=== PATIENT | male | born 1965 | race Caucasian/White ===

== ENCOUNTER 2017-01-17 12:41 | Outpatient (CLI) | payer MEDICARE, MEDICAID ==
[~2017-01-17 12:41] MED LIST: CLOB10TA PO; LACO200T2 PO; LACO50TA2 PO; LEVE500T9 PO
== END 2017-01-17 23:59 | disposition home or self-care (01) ==
LOC: XRAY 12:41
PROVIDERS: ATTEND Internal Medicine
DX: R05 Cough (principal)
CPT/HCPCS: 71020

== ENCOUNTER 2017-02-07 14:16 | Emergency (ER) | payer MEDICARE, MEDICAID ==
[~2017-02-07] VITALS: Ht 180.3 cm; Wt 72.6 kg
--- NOTE | 2017-02-07 15:33 | NUR ---
at the bedside
--- NOTE | 2017-02-07 16:16 | NUR ---
Patient discharged to home in stable conditon. Written and verbal after care instructions given. Patient verbalizes understanding of instructions.
== END 2017-02-07 16:17 | disposition home or self-care (01) ==
LOC: ER 14:16
DX: M79.662 Pain in left lower leg (principal); I10 Essential (primary) hypertension
CPT/HCPCS: 73502; 73590; A4663

== ENCOUNTER 2018-09-21 17:56 | Emergency (ER) | payer MEDICARE, MEDICAID ==
[~2018-09-21] VITALS: Ht 180.3 cm; Wt 72.6 kg
--- NOTE | 2018-09-21 18:23 | NUR ---
Dr Pearson at the bedside for MSE.
--- NOTE | 2018-09-21 18:38 | NUR ---
Patient discharged to home in stable conditon. Written and verbal after care instructions given. Patient verbalizes understanding of instructions.
[2018-09-21 18:39] VITALS: BP 139/84
== END 2018-09-21 18:39 | disposition home or self-care (01) ==
LOC: ER 17:57
DX: Z00.00 Encounter for general adult medical examination without abnormal findings (principal); I10 Essential (primary) hypertension; Z79.899 Other long term (current) drug therapy
CPT/HCPCS: A4663

== ENCOUNTER 2018-12-01 13:21 | Emergency (ER) | payer MEDICARE, MEDICAID ==
[~2018-12-01] VITALS: Ht 177.8 cm; Wt 73.9 kg
[2018-12-01] MEDS ORDERED: LIDOCAINE HCL 2% 20 ML VIAL TP ONE (14:00)
[2018-12-01] MEDS ORDERED: NEOMY/BACITRA/POLYMYXIN B OINT UD PACKET TP ONE ×2 (14:00→14:06)
--- NOTE | 2018-12-01 14:08 | NUR ---
PT IS IN ROOM #2A. DR ROE EVALUATED YHE PT. PT WAS D/C'D TO HOME. D/C INSTRUCTIONS GIVEN TO THE PT. NO BLEEDING. DRESSING IS INTACT.
[2018-12-01 14:09] VITALS: BP 131/89
== END 2018-12-01 14:10 | disposition home or self-care (01) ==
LOC: ER 13:21
DX: S01.111A Laceration without foreign body of right eyelid and periocular area, initial encounter (principal); I10 Essential (primary) hypertension; Z79.899 Other long term (current) drug therapy; W01.198A Fall on same level from slipping, tripping and stumbling with subsequent striking against other object, initial encounter; Y93.89 Activity, other specified; Y92.89 Other specified places as the place of occurrence of the external cause; Y99.8 Other external cause status
CPT/HCPCS: A4663; J3490

== ENCOUNTER 2018-12-07 15:04 | Emergency (ER) | payer MEDICARE, MEDICAID ==
[~2018-12-07] VITALS: Ht 177.8 cm; Wt 73.9 kg
--- NOTE | 2018-12-07 15:22 | NUR ---
PT IS IN ROOM #2B. DR ROSA EVALUATED THE PT.
--- NOTE | 2018-12-07 15:44 | NUR ---
Suture removed on right eyebrow
--- NOTE | 2018-12-07 15:46 | NUR ---
Patient discharged to home in stable conditon. Written and verbal after care instructions given. Patient verbalizes understanding of instructions. walked out of ER with no distress noted
== END 2018-12-07 15:47 | disposition home or self-care (01) ==
LOC: ER 15:06
DX: S01.111D Laceration without foreign body of right eyelid and periocular area, subsequent encounter (principal); I10 Essential (primary) hypertension; Z79.899 Other long term (current) drug therapy; X58.XXXD Exposure to other specified factors, subsequent encounter
CPT/HCPCS: A4663

== ENCOUNTER 2019-08-31 17:56 | Emergency (ER) | payer MEDICARE, MEDICAID ==
[~2019-08-31] VITALS: Ht 172.7 cm; Wt 72.6 kg
--- NOTE | 2019-08-31 18:10 | NUR ---
Patient BIB [id number] for c/o laceration on head s/p seizure. Speech is clear, speaks in complete sentences. No acute neuro deficits. A/Ox3. Respiratory even and unlabored, no cough no sob. No cardiovascular distress noted, all pulses palpable. Denies any n/v/d. Seizure precautions implemented per protocol.
--- NOTE | 2019-08-31 18:22 | NUR ---
Pt's brother at the bedside giving the pt CBD oil. Per brother pt uses CBD oil for seizure that his Neurologist prescribed.
[2019-08-31] MEDS ORDERED: ZONI100C42 PO (18:26)
[2019-08-31 18:57] LABS: EOSINOPHILS # (AUTO) 0.1 K/uL (0.0-0.7); MONOCYTES # (AUTO) 0.5 K/uL (2.0-10.0); WHITE BLOOD COUNT (AUTO) 4.9 K/uL (3.6-10.2)
--- NOTE | 2019-08-31 19:00 | NUR ---
Report given to CARY Meier
--- NOTE | 2019-08-31 19:00 | NUR ---
Assumed care of pt from CARY Moran
[2019-08-31 19:01] LABS: BASOPHILS % (AUTO) 0.8 % (0.0-2.0); EOSINOPHILS % (AUTO) 1.9 % (0.0-7.0); HEMATOCRIT 42.5 % (36.7-47.1); HEMOGLOBIN 14.6 g/dL (12.5-16.3); LYMPHOCYTES # (AUTO) 1.3 K/uL (20.0-40.0); LYMPHOCYTES % (AUTO) 27.1 % (20.5-51.5); MEAN CORPUSCULAR HEMOGLOBIN 30.3 uug (23.8-33.4); MEAN CORPUSCULAR HGB CONC 34 g/dL (32.5-36.3); MEAN CORPUSCULAR VOLUME 88.2 fL (73.0-96.2); NEUTROPHILS % (AUTO) 60.2 % (38.5-71.5); PLATELET COUNT (AUTO) 181 K/uL (152-348); RED BLOOD CELL COUNT(AUTO) 4.82 MIL/uL (4.06-5.63)
[2019-08-31 19:03] LABS: CARBON DIOXIDE 26 mmol/L (21-32); CHLORIDE 107 mmol/L (98-107); CREATININE 1.3 mg/dL (0.6-1.3); GLUCOSE 83 mg/dL (74-106); POTASSIUM 4.2 mmol/L (3.5-5.1); UREA NITROGEN, BLOOD 18 mg/dL (7-18)
--- NOTE | 2019-08-31 19:03 | NUR ---
Patient taken downstairs for CT.
[2019-08-31 19:09] LABS: ALANINE AMINOTRANSFERASE 17 U/L (16-63); ALKALINE PHOSPHATASE 88 U/L (50-136); ASPARTATE AMINOTRANSFERASE 14 U/L (15-37); BILIRUBIN,DIRECT < 0.1 mg/dL (0.0-0.2); BILIRUBIN,TOTAL 0.2 mg/dL (0.2-1.0); TOTAL PROTEIN, SERUM 7.2 g/dL (6.4-8.2)
--- NOTE | 2019-08-31 19:13 | NUR ---
Pt back to ER from CT.
--- NOTE | 2019-08-31 19:13 | NUR ---
Patient remains AOx3. Speech is clear, speaks in complete sentences. No acute neuro deficits. Respiratory even and unlabored, no cough no sob. No cardiovascular distress noted, all pulses palpable. Denies any pain or SOB. Denies any n/v/d. Seizure precautions maintained. Laceration on right eyebrow area with no further bleeding noted. Continue to monitor.
--- NOTE | 2019-08-31 19:23 | NUR ---
Urine specimen obtained and sent to lab.
[2019-08-31 19:31] LABS: *BILIRUBIN,URIN NEGATIVE (NEGATIVE); *BLOOD, URINE NEGATIVE (NEGATIVE); *CLARITY,URINE SLIGHTLY CLOUDY (CLEAR); *COLOR,URINE YELLOW (YELLOW); *KETONES,URINE NEGATIVE (NEGATIVE); *UROBILINOGEN,URINE 0.2 E.U./dl (NORMAL); LEUKOCYTE ESTERASE ,URINE NEGATIVE (NEGATIVE); NITRITE, URINE NEGATIVE (NEGATIVE); UGLUCOSE NEGATIVE (NEGATIVE)
--- NOTE | 2019-08-31 19:37 | NUR ---
Dr Ventura at bedside.
--- NOTE | 2019-08-31 19:40 | NUR ---
Dr. Ventura cleared pt to have fluids by mouth. Fluids given.
[2019-08-31 19:41] LABS: *AMPHETAMINE, URINE NEGATIVE (NEGATIVE); *BARBITURATE, URINE NEGATIVE (NEGATIVE); *CANNABINOID, URINE POSITIVE (NEGATIVE); *COCCAINE, URINE NEGATIVE (NEGATIVE); *OPIATE, URINE NEGATIVE (NEGATIVE); *PHENCYCLIDINE SCREEN,URINE NEGATIVE (NEGATIVE); BACTERIA,URINE FEW /HPF (NONE SEEN); WBC,URINE 0-3 /HPF (0-3)
[2019-08-31 19:42] LABS: URINE AMORPHOUS URATE MODERATE /HPF
--- NOTE | 2019-08-31 19:52 | NUR ---
BP 164/100. Dr. Ventura aware with no new order.
--- NOTE | 2019-08-31 20:03 | NUR ---
Patient discharged to home in stable conditon. Written and verbal after care instructions given. Patient verbalizes understanding of instructions. Patient ambulated with steady gait. All belongings with pt.
[2019-08-31 20:04] VITALS: BP 164/100
== END 2019-08-31 20:03 | disposition home or self-care (01) ==
LOC: ER 17:56
DX: S01.81XA Laceration without foreign body of other part of head, initial encounter (principal); R56.9 Unspecified convulsions; I10 Essential (primary) hypertension; Z79.899 Other long term (current) drug therapy; W07.XXXA Fall from chair, initial encounter; Y93.89 Activity, other specified; Y92.89 Other specified places as the place of occurrence of the external cause; Y99.8 Other external cause status
CPT/HCPCS: 36415; 70450; 80307; 85025; A4663

== ENCOUNTER 2019-09-05 15:59 | Emergency (ER) | payer MEDICARE, MEDICAID ==
[~2019-09-05] VITALS: Ht 180.3 cm; Wt 74.4 kg
[~2019-09-05 15:59] MED LIST changes: -CLOB10TA PO; +ZONI100C42 PO
[2019-09-05] MEDS ORDERED: KETOROLAC TROMETHAMINE 60 MG INJ IM ONE (17:00)
[2019-09-05] MEDS ORDERED: HYDROCODONE/APAP 5-325MG TABLET PO ONE (17:45)
--- NOTE | 2019-09-05 17:47 | NUR ---
PT WAS EVALUATED BY DR BARAHONA. PT WAS D/C'd TO HOME. D/C INSTRUCTIONS GIVEN TO THE PT. PT DENIES PAIN. NO S/S OF DISTRESS .
[2019-09-05 17:49] VITALS: BP 143/78
== END 2019-09-05 17:50 | disposition home or self-care (01) ==
LOC: ER 16:01
DX: S01.111D Laceration without foreign body of right eyelid and periocular area, subsequent encounter (principal); S00.31XD Abrasion of nose, subsequent encounter; S16.1XXD Strain of muscle, fascia and tendon at neck level, subsequent encounter; I10 Essential (primary) hypertension; Z79.899 Other long term (current) drug therapy; W18.39XD Other fall on same level, subsequent encounter
CPT/HCPCS: 72125; A4663

== ENCOUNTER 2019-10-15 01:58 | Emergency (ER) | payer MEDICARE, MEDICAID ==
[~2019-10-15] VITALS: Ht 195.6 cm; Wt 77.1 kg
--- NOTE | 2019-10-15 02:07 | NUR ---
PATIENT PRESENTS TO THE ER WITH AN EPISODE OF HYPERVENTILATION. UPON BEING BROUGHT INTO THE ROOM, PLACED ON MONITOR PATIENT HAS 100% SAO2 ON ROOM AIR. HE IS ABLE TO SPEAK IN COMPLETE SENTENCES, FOLLOW DIRECTIONS. PATIENT IS NOW CALM AND BREATHING NORMALLY.
[2019-10-15] MEDS ORDERED: LORAZEPAM 1 MG TABLET ONE ×2 (02:14→02:39)
[2019-10-15] MEDS ORDERED: LORAZEPAM 0.5 MG TABLET PO ONE ×2 (02:15→02:45)
[2019-10-15 02:42] VITALS: BP 126/89
--- NOTE | 2019-10-15 02:42 | NUR ---
Patient discharged to home in stable conditon, accompanied by brother. Written and verbal after care instructions given. Patient and brother verbalizes understanding of instructions. patient left with stable gait.
== END 2019-10-15 02:43 | disposition home or self-care (01) ==
LOC: ER 02:04
DX: F41.9 Anxiety disorder, unspecified (principal); R06.4 Hyperventilation; G40.909 Epilepsy, unspecified, not intractable, without status epilepticus; I10 Essential (primary) hypertension; Z79.899 Other long term (current) drug therapy
CPT/HCPCS: 93005; A4663

== ENCOUNTER 2019-11-09 19:59 | Emergency (ER) | payer MEDICARE, OTHER ==
[~2019-11-09] VITALS: Ht 180.3 cm; Wt 73.9 kg
[2019-11-09] MEDS ORDERED: NEO/POLYMYX B/DEXAME OPHT OINT 3.5 GM TUBE EACHEYE STA (21:17)
[2019-11-09] MEDS ORDERED: NEOMY/POLYMYX B/HC OPHT DROP 7.5 ML BOTTLE ONE (21:20)
[2019-11-09] MEDS ORDERED: ACETAMINOPHEN ES 500 MG TABLET PO ONE (21:30)
[2019-11-09] MEDS ORDERED: CEphaleXIN 250 MG CAPSULE ONE (22:50)
--- NOTE | 2019-11-09 22:54 | NUR ---
Patient discharged to home in stable conditon. Written and verbal after care instructions given. Patient verbalizes understanding of instructions. Ambulated from ER with stable gait. All belongings with patient.
[2019-11-09 22:55] VITALS: BP 134/80
[2019-11-09] MEDS ORDERED: CEphaleXIN 250 MG CAPSULE PO ONE (23:00)
== END 2019-11-09 22:57 | disposition home or self-care (01) ==
LOC: ER 20:01
DX: S05.11XA Contusion of eyeball and orbital tissues, right eye, initial encounter (principal); I10 Essential (primary) hypertension; Z79.899 Other long term (current) drug therapy; Z86.69 Personal history of other diseases of the nervous system and sense organs; X58.XXXA Exposure to other specified factors, initial encounter; Y93.89 Activity, other specified; Y92.89 Other specified places as the place of occurrence of the external cause; Y99.8 Other external cause status
CPT/HCPCS: 70480; A4663

== ENCOUNTER 2023-04-11 18:49 | Emergency (ER) | payer MEDICARE, OTHER ==
[~2023-04-11] VITALS: Ht 180.3 cm; Wt 72.6 kg
[2023-04-11] MEDS ORDERED: levETIRAcetam IV 1,000 MG in IV DEXTROSE 5% 100 ML IV ONE ×2 (19:30→20:30)
[2023-04-11] MEDS ORDERED: levETIRAcetam 500 MG/5 ML VIAL IV ONE ×2 (20:21→21:31)
[2023-04-11 20:47] LABS: HEMATOCRIT 41.7 % (36.7-47.1); MEAN CORPUSCULAR HEMOGLOBIN 29.7 uug (23.8-33.4); MEAN CORPUSCULAR VOLUME 87.2 fL (73.0-96.2); PLATELET COUNT (AUTO) 172 K/uL (152-348)
[2023-04-11 20:57] LABS: CREATININE 1.2 mg/dL (0.6-1.3); POTASSIUM 4.1 mmol/L (3.5-5.1)
--- NOTE | 2023-04-11 21:00 | NUR ---
Patient taken to CT via [facility] accompanied by
[2023-04-11 21:03] LABS: BILIRUBIN,TOTAL 0.3 mg/dL (0.2-1.0); TOTAL PROTEIN, SERUM 7.9 g/dL (6.4-8.2)
[2023-04-11] MEDS ORDERED: ACETAMINOPHEN 325 MG TABLET PO ONE (21:30)
[2023-04-11] MEDS ORDERED: KETOROLAC TROMETHAMINE 15 MG INJ IVP ONE (21:30)
--- NOTE | 2023-04-11 21:30 | NUR ---
Patient aox2-3, following commands, post-ictal. Patient turning himself in bed.
[2023-04-11] MEDS ORDERED: ACETAMINOPHEN 325 MG TABLET ONE (21:31)
[2023-04-11] MEDS ORDERED: KETOROLAC TROMETHAMINE 15 MG INJ ONE (21:32)
--- NOTE | 2023-04-11 21:51 | NUR ---
Patient drank 4oz of water with Tylenol 650mg PO, able to swallow without difficulty, no cough, no aspiration noted during swallowing eval.
[2023-04-11] MEDS ORDERED: SUCCINYLCHOLINE CHLORIDE 200 MG/10 ML VIAL ONE (22:00)
[2023-04-11] MEDS ORDERED: ETOMIDATE 20 MG/10 ML VIAL ONE ×3 (22:00→23:10)
[2023-04-11] MEDS ORDERED: PROPOFOL 200 MG/20 ML BOTTLE ONE (22:00)
--- NOTE | 2023-04-11 22:11 | NUR ---
Patient placed on hard collar per Dr. Pearce order.
--- NOTE | 2023-04-11 22:20 | NUR ---
Per Dr. Estrella patient requires higher level of care. Dr. Estrella called [facility] for transfer.
--- NOTE | 2023-04-11 22:25 | NUR ---
Clinical data faxed to [facility].
--- NOTE | 2023-04-11 22:30 | NUR ---
Called [facility] to request bed for higher level of care. Per [facility] nurse, patient has been accepted by facility by Dr. Wing and Dr. Joe.
--- NOTE | 2023-04-11 22:55 | NUR ---
While patient's brother was visiting, patient had 1x witness tonic-clonic seizure lasting [address] Estrella notified.
[2023-04-11] MEDS ORDERED: LORAZEPAM 2 MG/1 ML VIAL ONE (23:00)
--- NOTE | 2023-04-11 23:00 | NUR ---
Dr Estrella verbally ordered Ativan 2mg IM
--- NOTE | 2023-04-11 23:02 | NUR ---
Ativan 2mg IM given.
[2023-04-11] MEDS ORDERED: PROPOFOL 100 ML ONE (23:14)
--- NOTE | 2023-04-11 23:19 | NUR ---
Patient currently having seizures, side rails padded and suction ready. Dr Estrella notified.
--- NOTE | 2023-04-11 23:25 | NUR ---
Succ 160mg IV given at 2322 and atomidate 30mg IV at 2321
--- NOTE | 2023-04-11 23:25 | NUR ---
Per Dr. Estrella patient to be intubated for oxygen saturation 80%
--- NOTE | 2023-04-11 23:32 | NUR ---
Called 911 transfer to [facility]. [phone] to [facility] and transfer patient.
--- NOTE | 2023-04-11 23:36 | NUR ---
Propofol drip started at 2325 15meq/kg/min
--- NOTE | 2023-04-11 23:39 | NUR ---
Propofol drip stopped prior to patient's transfer per Dr. Estrella's order.
--- NOTE | 2023-04-11 23:40 | NUR ---
Patient picked up by 911 [phone] due to patient requiring higher level of care and transfer to [facility]. Clinical data printed and given CD with scans. Patient's brother (Bridger) notified of patient's transfer.
--- NOTE | 2023-04-11 23:50 | NUR ---
Jean-Claude alonso in ED - 04/12/23 at 0242 by RYLAN While patient's brother was visiting, patient had 1x witness tonic-clonic seizure lasting [address] Estrella notified.
[2023-04-12] MEDS ORDERED: LORAZEPAM 2 MG/1 ML VIAL IM ONE (03:15)
[2023-04-12] MEDS ORDERED: SUCCINYLCHOLINE CHLORIDE 200 MG/10 ML VIAL IV ONE (03:15)
[2023-04-12] MEDS ORDERED: PROPOFOL 100 ML IV PRN (03:15)
[2023-04-12] MEDS ORDERED: ETOMIDATE 20 MG/10 ML VIAL IV ONE (03:15)
== END 2023-04-11 23:40 | disposition short-term general hospital (02) ==
LOC: ER 18:51
DX: S12.100A Unspecified displaced fracture of second cervical vertebra, initial encounter for closed fracture (principal); T14.8XXA Other injury of unspecified body region, initial encounter; U07.1 COVID-19; J96.90 Respiratory failure, unspecified, unspecified whether with hypoxia or hypercapnia; G40.909 Epilepsy, unspecified, not intractable, without status epilepticus; Z79.899 Other long term (current) drug therapy; W19.XXXA Unspecified fall, initial encounter; Y93.89 Activity, other specified; Y92.89 Other specified places as the place of occurrence of the external cause; Y99.8 Other external cause status
CPT/HCPCS: 99291; 70450; 31500; 96365; 71045 ×2; 96366; 96375; 87426; 80053; 85025; 85610; 36415; 72125; 96372; J3490 ×3; J1885; J2060; J0330; J1953 ×4; 94002; A4663

== ENCOUNTER 2023-05-18 17:27 | Emergency (ER) | payer MEDICARE, OTHER ==
[~2023-05-18] VITALS: Ht 180.3 cm; Wt 72.6 kg
--- NOTE | 2023-05-18 17:36 | NUR ---
seen and examined by MD Clark
[2023-05-18] MEDS ORDERED: ONDANSETRON 4 MG/2 ML VIAL ONE ×2 (17:38→18:42)
[2023-05-18] MEDS ORDERED: PANT40TA49 PO (17:38)
[2023-05-18] MEDS ORDERED: MORPHINE SULFATE 4 MG/1 ML DISP.SYRIN ONE (17:39)
[2023-05-18] MEDS ORDERED: ONDANSETRON 4 MG/2 ML VIAL IV ONE ×2 (17:45→18:45)
[2023-05-18] MEDS ORDERED: IV NORMAL SALINE 1000 ML BAG IV ONE (17:45)
[2023-05-18] MEDS ORDERED: MORPHINE SULFATE 2 MG/1 ML DISP.SYRIN IV ONE (17:45)
[2023-05-18 17:59] LABS: HEMATOCRIT 37.5 % (36.7-47.1); MEAN CORPUSCULAR HEMOGLOBIN 29.8 uug (23.8-33.4); MEAN CORPUSCULAR VOLUME 88.5 fL (73.0-96.2); PLATELET COUNT (AUTO) 200 K/uL (152-348)
--- NOTE | 2023-05-18 18:04 | NUR ---
CT in process
[2023-05-18 18:07] LABS: CREATININE 1.4 mg/dL (0.6-1.3); POTASSIUM 3.9 mmol/L (3.5-5.1)
[2023-05-18 18:13] LABS: BILIRUBIN,DIRECT 0.1 mg/dL (0.0-0.2); BILIRUBIN,TOTAL 0.5 mg/dL (0.2-1.0); TOTAL PROTEIN, SERUM 7.2 g/dL (6.4-8.2)
[2023-05-18] MEDS ORDERED: HYDROMORPHONE 1 MG/1 ML DISP.SYRIN ONE (18:42)
[2023-05-18] MEDS ORDERED: KETOROLAC TROMETHAMINE 30 MG INJ ONE (18:42)
[2023-05-18] MEDS ORDERED: HYDROMORPHONE 1 MG/1 ML DISP.SYRIN IV ONE (18:45)
[2023-05-18] MEDS ORDERED: KETOROLAC TROMETHAMINE 30 MG INJ IVP ONE (18:45)
--- NOTE | 2023-05-18 18:54 | NUR ---
ua collected and sent to lab
[2023-05-18 19:02] LABS: *BILIRUBIN,URIN NEGATIVE (NEGATIVE); *BLOOD, URINE 1+ (NEGATIVE); *CLARITY,URINE CLEAR (CLEAR); *COLOR,URINE YELLOW (YELLOW); *KETONES,URINE NEGATIVE (NEGATIVE); *UROBILINOGEN,URINE 0.2 E.U./dl (NORMAL); LEUKOCYTE ESTERASE ,URINE NEGATIVE (NEGATIVE); NITRITE, URINE NEGATIVE (NEGATIVE); UGLUCOSE NEGATIVE (NEGATIVE)
[2023-05-18] MEDS ORDERED: HYDR-3980 PO (19:46)
[2023-05-18] MEDS ORDERED: PROC10TA29 PO (19:49)
--- NOTE | 2023-05-18 19:56 | NUR ---
Patient discharged to home in stable condition. Written and verbal after care instructions given. Patient verbalizes understanding of instructions. Stressed follow up or return to ER for worsening s/s. Patient out of ER with steady gait, no acute signs of distress, VSS, all belongings taken, IV site discontinued, provided with copies of lab and CT results, instructed not to drive, to be driven home by family via private vehicle.
[2023-05-18 19:57] VITALS: BP 141/89; O2SAT 99
[2023-05-19 00:18] LABS: BACTERIA,URINE FEW /HPF (NONE SEEN); WBC,URINE NONE SEEN /HPF (0-3)
[2023-05-19 00:19] LABS: SQUAMOUS EPITHELIAL CELL,UR NONE SEEN /HPF (NONE SEEN)
== END 2023-05-18 19:57 | disposition home or self-care (01) ==
LOC: ER 17:27
DX: R10.32 Left lower quadrant pain (principal); Z79.899 Other long term (current) drug therapy
CPT/HCPCS: 99285; 74176; 96374; 96375; 96361; 80076; 80048; 81001; 83690; 85025; 36415; J1885; J2405 ×2; J1170; J2270; J7040; A4663